=== PATIENT | female | born 1960 | race Caucasian/White ===

== ENCOUNTER 2022-09-27 20:12 | Emergency (ER) | payer OTHER ==
[2022-09-27 20:23] VITALS: BP 144/82; PULSE 81; RESP 18; TEMP 98.3; BMI 20.9
== END 2022-09-27 21:13 | disposition home or self-care (01) ==
LOC: JERFT 20:12
DX: U07.1 COVID-19 (principal); R05.1 Acute cough; R19.7 Diarrhea, unspecified
CPT/HCPCS: 0241U-QW; 71046-TC-FY; 99284-25

== ENCOUNTER 2023-01-21 08:47 | Emergency (ER) | payer OTHER ==
[2023-01-21 09:07] VITALS: BP 173/77; PULSE 74; RESP 18; TEMP 98.3; BMI 23.3
[2023-01-21] MEDS ORDERED: TUBERCULIN PPD 5 TU/0.1ML SYRINGE (IN PATIENT USE ONLY) ID ONE (12:43)
== END 2023-01-21 15:22 | disposition home or self-care (01) ==
LOC: JERFT 08:47 → JER 08:47 → JERFT 15:22
DX: R09.81 Nasal congestion (principal); Z20.822 Contact with and (suspected) exposure to COVID-19
CPT/HCPCS: 0241U-QW; 71046-TC-FY; 86480; 99284-25

== ENCOUNTER 2023-01-23 14:34 | Emergency (ER) | payer OTHER ==
[2023-01-23 14:42] VITALS: BP 159/77; PULSE 71; RESP 16; TEMP 97.8; BMI 22.4
[2023-01-23 16:16] LABS: ALBUMIN 3.9 g/dl (3.4-5.0)
[2023-01-23 16:19] LABS: BILIRUBIN,DIRECT 0.1 mg/dL (0.0-0.2)
[2023-01-23 16:20] LABS: TOT PROT 7.5 g/dl (6.4-8.2)
[2023-01-23 16:21] LABS: BILIRUBIN,TOTAL 0.7 mg/dL (0.2-1)
== END 2023-01-23 16:41 | disposition home or self-care (01) ==
LOC: JERFT 14:34
DX: R76.11 Nonspecific reaction to tuberculin skin test without active tuberculosis (principal); R09.81 Nasal congestion
CPT/HCPCS: 36415; 80076; 99283-25